=== PATIENT | female | born 1990 | race Caucasian/White ===

== ENCOUNTER 2023-04-06 11:31 | Emergency (ER) | payer OTHER, SELFPAY ==
--- NOTE | ~2023-04-06 | XR_ITS ---
History: Fall. Exams: Right forearm 2 views, right elbow 4 views, right wrist 4 views FINDINGS: Scaphoid intact. Acute comminuted displaced and impacted articular fracture of the distal radius. Minimally displaced ulnar styloid fracture. No elbow abnormality or effusion. Radial head and neck intact. No dislocation. XR/XR forearm RT 2V IMPRESSION: Fractures as above.
--- NOTE | ~2023-04-06 | XR_ITS ---
History: Fall. Exams: Right forearm 2 views, right elbow 4 views, right wrist 4 views FINDINGS: Scaphoid intact. Acute comminuted displaced and impacted articular fracture of the distal radius. Minimally displaced ulnar styloid fracture. No elbow abnormality or effusion. Radial head and neck intact. No dislocation. XR/XR wrist RT min 3V IMPRESSION: Fractures as above.
--- NOTE | ~2023-04-06 | XR_ITS ---
History: Fall. Exams: Right forearm 2 views, right elbow 4 views, right wrist 4 views FINDINGS: Scaphoid intact. Acute comminuted displaced and impacted articular fracture of the distal radius. Minimally displaced ulnar styloid fracture. No elbow abnormality or effusion. Radial head and neck intact. No dislocation. XR/XR elbow RT 2V IMPRESSION: Fractures as above.
--- NOTE | ~2023-04-06 | XR_ITS ---
EXAMINATION: XR WRIST, RIGHT CLINICAL INFORMATION: Postreduction COMPARISON: Right forearm performed earlier at 11:56 AM.. TECHNIQUE: PA, lateral, and oblique views of the right wrist. FINDINGS: There is a transverse fracture distal radius with mild dorsal angulation. Also visualized is a displaced ulnar styloid process fracture. The carpal bones and the intercarpal and carpometacarpal joint space is normal. Moderate dorsal distal forearm soft tissue swelling is seen. The entire distal forearm is in a cast. XR/XR wrist RT 2V IMPRESSION: Transverse fracture distal radius with dorsal angulation. Displaced ulnar styloid process fracture. Moderate dorsal soft tissue swelling.
--- NOTE | 2023-04-06 11:40 | ED.GENADULT ---
HPI - General Adult General Chief complaint: Extremity Injury, Upper Stated complaint: R hand injury Time Seen by Provider: 04/06/23 12:12 History of Present Illness HPI narrative: The patient is a 32-year-old who was in a hotel in [place] yesterday evening when she tripped and injured her right wrist. She spent the night in the hotel and drove back to this area this morning and came to the emergency room. Other than the wrist injury she did not sustain any injuries. She is on no anticoagulants. She does not believe there is any chance she could be today. Related Data Previous Rx's Medication Instructions Recorded oxycodone 5 mg capsule 5 mg PO Q6H PRN pain #12 caps 04/06/23 Allergies Allergy/AdvReac Type Severity Reaction Status Date / Time sulfamethoxazole Allergy Unknown Unknown Verified 04/06/23 11:43 [From Bactrim] trimethoprim [From Bactrim] Allergy Unknown Unknown Verified 04/06/23 11:43 naproxen AdvReac Mild Nausea Verified 04/06/23 11:44 Review of Systems Review of Systems: Yes all other systems are reviewed and are negative [facility] Social History Social History Alcohol intake: current Smoked in Last 30 Days: No Use of substances other than those prescribed or required for medical reasons: Yes Substance Use Type: Marijuana Advance Directives: No Advance Directives Information Provided: Yes Physical Exam ED Vital Signs: Vital Signs - 24 hr 04/06/23 11:45 04/06/23 12:09 Temperature 98 F Pulse Rate 72 82 Respiratory Rate 16 19 Blood Pressure 115/74 115/64 Pulse Oximetry 98 96 Oxygen Delivery Method Room Air BMI result Body Mass Index 29.0 Const Other: The patient is awake, alert, pleasant, cooperative. The patient looked uncomfortable and tearful. HENMT Other: The face is symmetrical. ?Mucous membranes moist. Eyes Other: Pupils are round equal, conjunctivae are clear, extraocular movements intact Resp Effort & Inspection: normal respiratory effort Auscultation: clear to auscultation bilaterally Cardio Rate: regular rate Rhythm: regular rhythm Heart sounds: S1 normal heart sound present and S2 normal heart sound present Skin Other: The skin is intact Neuro Other: The patient is awake, alert, oriented, appropriate, intact sensation in the fingers. Extrem Other: There is deformity at the right wrist consistent with a silver fork type deformity. The patient is quite tender. Course Course Course Narrative: RME:?32 yo female here w/ right hand/wrist/forearm pain s/p trip and FOOSH last night while at a dental convention. Denies head strike or LOC. Reports pain to the entire right hand/wrist/forearm w/ tingling up to her right shoulder. took 4 motrin at 0800 this am. not on AC. PE: significant swelling to the radial and palmar/ventral aspects of the right hand, wrist and forearm. dec ROM to right wrist. 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 2+ulnar pulses. cannot feed radial pulses d/t swelling. sensation intact. xrays ordered Full HPI, ROS and PE to be performed by the primary ED provider. Medications Administered Discontinued Medications Generic Name Dose Route Start Last Admin Trade Name Jena PRN Reason Stop Dose Admin Bupivacaine HCl 10 ml 04/06/23 12:18 04/06/23 13:22 Bupivacaine 0.5 % 50 Ml Vial INFILTRATI 04/06/23 12:19 Not Given ONCE ONE Bupivacaine HCl 10 ml 04/06/23 12:45 04/06/23 13:22 Bupivacaine Mpf 0.5 % 10 Ml Vial INFILTRATI 04/06/23 12:46 10 ml ONCE ONE Administration Ketorolac Tromethamine 30 mg 04/06/23 12:27 04/06/23 12:31 Ketorolac Tromethamine 30 Mg/Ml Vial IM 04/06/23 12:28 30 mg ONCE ONE Administration Procedures Orthopedic Fracture Reduction Fracture #1: Time Out Performed: Yes Side: right Fracture Reduction Location: radius Analgesia: hematoma block Technique: direct manipulation and finger traps Post Reduction X-rays Demonstrate: acceptable reduction Post-reduction neuro exam: intact Post-reduction vascular exam: intact Splint Applied: Yes Patient Tolerated Procedure: well Medical Decision Making Medical Decision Making MDM Narrative: The patient is a 32-year-old female who comes to the emergency room after injuring her right wrist last night. X-ray shows a Colles type fracture of the distal radius with dorsal angulation of the fracture segment. The fracture was comminuted. After prepping the skin overlying the fracture with Betadine I administered 10 mL of 0.5% bupivacaine for a hematoma block. I then suspended the right arm by the index and middle finger and applied weights to the elbow. After hanging the arm for 15 minutes I perform manual manipulation of the fracture site and applied a sugar-tong splint with molding. Postreduction x-ray shows modest improvement in the appearance of the fracture. It was my impression that additional attempts at manipulation would probably not be very useful. The patient was therefore kept in a sugar-tong splint and should follow up with her orthopedist. She has an orthopedic surgeon at [facility]. She was given a disc of her x-rays. She was given a prescription for oxycodone. She should keep the arm elevated. Discharge Plan Discharge Clinical Impression: Closed fracture of right distal radius and ulna Patient Disposition: Home, Self-Care Instructions: Wrist Fracture in Adults (ED), Closed Reduction (ED) Additional Instructions: Please keep your wrist elevated to the level of your heart or higher. Keeping the wrist elevated will reduce swelling and pain. You may take 2 extra-strength acetaminophen (Tylenol) up to 3 times a day as needed for pain. I have also sent a prescription for oxycodone tablets to your pharmacy. Please contact your orthopedic office on Saturday to arrange prompt follow-up. I suspect that you will likely need a surgical repair of this injury. Return to the emergency room if worse. Prescriptions: New oxycodone 5 mg capsule 5 mg PO Q6H PRN (Reason: pain) Qty: 12 0RF Rx Instructions: Partial Fill upon patient request. Referrals: Jessica Chan MD [Physician] - (right wrist fracture) Interventions: ED Discharge Assessment Last Done: 04/06/23 14:43 Discharge Date/Time: 04/06/23 14:43
[2023-04-06 11:45] VITALS: BP 115/74; PULSE 72; RESP 16; TEMP 36.6; O2SAT 98; BMI 29.0
[2023-04-06 12:09] VITALS: BP 115/64; PULSE 82; RESP 19; O2SAT 96
[2023-04-06] MEDS: Ketorolac Tromethamine 30 MG/ML VIAL IM (12:31)
[2023-04-06] MEDS: BUPivacaine MPF 0.5 % 10 ML VIAL INFILTRATI (13:22)
== END 2023-04-06 14:43 | disposition home or self-care (01) ==
PROVIDERS: Emergency Provider Emergency Medicine; PCP Physician Assistant Medical
DX: S52.501A Unspecified fracture of the lower end of right radius, initial encounter for closed fracture (principal); S52.611A Displaced fracture of right ulna styloid process, initial encounter for closed fracture; W10.8XXA Fall (on) (from) other stairs and steps, initial encounter; Y93.89 Activity, other specified; Y92.29 Other specified public building as the place of occurrence of the external cause; Y99.9 Unspecified external cause status
CPT/HCPCS: 25605; 73070; 73090; 73100; 73110; 73130; 96372; 99284; J0665; J1885